=== PATIENT | male | born 2000 | race African-American/Black ===

== ENCOUNTER 2022-08-10 02:49 | Emergency (ER) | payer BC ==
[~2022-08-10] VITALS: Ht 180.3 cm; Wt 81.6 kg
== END 2022-08-10 03:30 | disposition home or self-care (01) ==
LOC: ED 02:49
DX: S61.012A Laceration without foreign body of left thumb without damage to nail, initial encounter (principal); W27.8XXA Contact with other nonpowered hand tool, initial encounter; Y93.89 Activity, other specified; Y92.009 Unspecified place in unspecified non-institutional (private) residence as the place of occurrence of the external cause; Y99.8 Other external cause status